=== PATIENT | male | born 1970 | race African-American/Black ===

== ENCOUNTER → 2018-10-07 | Outpatient (CLI) | payer BC | LOC: BRMIMAGING 09:00 | PROVIDERS: ATTEND Internal Medicine | DX: M18.0 Bilateral primary osteoarthritis of first carpometacarpal joints (principal); S83.101A Unspecified subluxation of right knee, initial encounter; S83.102A Unspecified subluxation of left knee, initial encounter | CPT/HCPCS: 73130-PO; 73562-PO ==